=== PATIENT | female | born 1990 | race Caucasian/White ===

== ENCOUNTER 2018-05-05 17:45 | Outpatient (REF) | payer MEDICAID, SELFPAY ==
[2018-05-05 19:48] LABS: HCT 35.2 % (36.0-46.0); HGB 11.6 g/dL (12.0-15.5); Mean Corpuscular Hemoglobin 31.2 pg (27.0-33.0); Mean Corpuscular Volume 94.6 fL (80-95); Mean Platelet Volume 11.7 fL (8.0-11.0); Platelet Count 202 x1000/uL (130-400); RBC 3.72 m/cumm (4.00-5.20); RBC Distribution Width 12.5 % (11.7-14.6); White Blood Cell Count 5.77 k/cumm (4.4-10.8)
[2018-05-05 20:15] LABS: BUN 8 mg/dL (7-18); CREATININE 0.68 mg/dL (0.55-1.02); Calcium 8.3 mg/dL (8.5-10.1); Chloride 105 mmol/L (98-107); FREE T4 0.94 ng/dL (0.76-1.46); Glucose 116 mg/dL (70-100); Potassium 3.8 mmol/L (3.5-5.1); Sodium 141 mmol/L (136-145); TSH 1.05 uIU/mL (0.358-3.74)
[2018-05-07 16:06] LABS: T3,Free 3.4 pg/ml (2.8-5.3)
== END 2018-05-05 18:05 ==
LOC: LBN 17:45
PROVIDERS: PCP Nurse Practitioner; Visit Provider Nurse Practitioner
DX: F41.9 Anxiety disorder, unspecified (principal); E05.00 Thyrotoxicosis with diffuse goiter without thyrotoxic crisis or storm; F32.9 Major depressive disorder, single episode, unspecified
CPT/HCPCS: 80048; 85027; 84439; 84443; 84481